=== PATIENT | female | born 1985 | race African-American/Black ===

== ENCOUNTER 2017-01-16 14:35 | Emergency (ER) | payer MEDICAID ==
[~2017-01-16] VITALS: Ht 172.7 cm; Wt 146.0 kg
[2017-01-16 15:27] VITALS: BP 116/67
== END 2017-01-16 21:15 | disposition left against medical advice (07) ==
LOC: ER 16:49
DX: Z53.21 Procedure and treatment not carried out due to patient leaving prior to being seen by health care provider (principal)

== ENCOUNTER 2017-01-17 15:32 | Emergency (ER) | payer MEDICAID ==
[~2017-01-17] VITALS: Ht 170.2 cm; Wt 147.0 kg
[2017-01-17 19:20] VITALS: BP 138/76
== END 2017-01-17 20:48 | disposition home or self-care (01) ==
LOC: ER 15:55
DX: L03.114 Cellulitis of left upper limb (principal); L02.414 Cutaneous abscess of left upper limb; E11.9 Type 2 diabetes mellitus without complications; Z88.1 Allergy status to other antibiotic agents; Z88.0 Allergy status to penicillin; Z88.2 Allergy status to sulfonamides
CPT/HCPCS: 99283